=== PATIENT | female | born 1955 | race Caucasian/White ===

== ENCOUNTER 2023-04-24 10:44 | Emergency (ER) | payer OTHER ==
[~2023-04-24] VITALS: Ht 172.7 cm; Wt 67.9 kg
[2023-04-24 10:55] VITALS: BP 153/74; PULSE 79; RESP 16; TEMP 98; O2SAT 96
== END 2023-04-24 13:20 | disposition home or self-care (01) ==
LOC: ER 10:44
DX: S92.811A Other fracture of right foot, initial encounter for closed fracture (principal); W18.39XA Other fall on same level, initial encounter; Y93.89 Activity, other specified; Y92.89 Other specified places as the place of occurrence of the external cause; Y99.8 Other external cause status
CPT/HCPCS: 73630

== ENCOUNTER 2024-10-31 08:27 | Inpatient (IN) | payer OTHER ==
[~2024-10-31] VITALS: Ht 172.7 cm; Wt 77.4 kg
[~2024-10-31 08:27] MED LIST: AML5T GT; ASPI81CH59 PO; BIOT1SUB SL; CALC-605 PO; COLL1TAB PO; GLUCPOW42 PO; HYDR1TAB97 PO; IBUP-1455 PO; LISI40TA16 PO; LUTE1CAP10 PO; MAGN400T40 OR; MULT-1054 PO; POTA80TA OR; SIMV20TA20 PO; TURM500C3 OR; VITA200T2 PO
[2024-10-31] MEDS: TRANEXAMIC ACID 20 ML ONE (08:41)
[2024-10-31] MEDS ORDERED: KETOROLAC TROMETH 30 MG/ML 1ML VIAL ONE ×2 (08:43→08:51)
[2024-10-31] MEDS ORDERED: MORPHINE SULF PF 5 MG/10 ML VIAL ONE (08:51)
[2024-10-31] MEDS: CEFEPIME 1GM/ 50ML 50 ML IV ONE ×2 (08:52→09:12)
[2024-10-31] MEDS: CELECOXIB 100 MG CAP ONE (09:07)
[2024-10-31] MEDS: PREGABALIN CAPSULE 75 MG CAP ONE (09:07)
[2024-10-31] MEDS ORDERED: ceFAZolin 2 GM/D5W50ml 50 ML IV ONE (09:10)
[2024-10-31] MEDS: ACETAMINOPHEN 500 MG TAB or CAP PO ONE (09:10)
[2024-10-31] MEDS: ACETAMINOPHEN IV 100 ML IV ONE (09:20)
[2024-10-31] MEDS ORDERED: fentaNYL CITRATE 100 MCG/2 ML VL ONE (09:52)
[2024-10-31] MEDS ORDERED: MIDAZOLAM HCL 2MG/2ML 2ml VIAL (1mg/ml) ONE (09:53)
[2024-10-31] MEDS ORDERED: PROPOFOL 10 MG/ML 20 ML IV ONE (09:54)
[2024-10-31] MEDS ORDERED: ePHEDrine SULFATE 50 MG/ML AMP ONE (10:25)
[2024-10-31] MEDS: BUPIVACAINE 0.25% INJ 50ML VIAL ONE (10:48)
[2024-10-31] MEDS: VANCOMYCIN HCL 1000 MG VL ONE (10:49)
[2024-10-31] MEDS: ROPIVACAINE 0.5% (5MG/ML) 20ML AMPULE IJ ONE (11:04)
[2024-10-31] MEDS ORDERED: MORPHINE SULFATE INJ 2 MG/ml SYRG IV PRN (11:15)
[2024-10-31] MEDS ORDERED: ONDANSETRON HCL 4 MG/2 ML VIAL IV PRN (11:15)
[2024-10-31] MEDS ORDERED: NITROGLYCERIN 0.4 MG SL TAB SL PRN (11:15)
[2024-10-31 11:39] VITALS: PULSE 65; RESP 15; O2SAT 95
[2024-10-31] MEDS ORDERED: ONDANSETRON HCL 4 MG/2 ML VIAL IV ONE (12:00)
[2024-10-31] MEDS ORDERED: HYDROmorphone HCL 2 MG/ML VL/or syr IV PRN (12:00)
[2024-10-31] MEDS: SODIUM CHLOR 0.9% PF (SALINE LOCK) 10ML VIAL/SYR IV SCH (14:00)
--- NOTE | 2024-10-31 14:45 | DVH ---
EXAM: XY PELVIS AP CLINICAL INDICATION: sp Right JULIAN TECHNIQUE: XY PELVIS AP Comparison: None FINDINGS/IMPRESSION: Right total hip arthroplasty. Moderate left hip osteoarthritis.
[2024-10-31] MEDS: OXYCODONE W/ ACETAMINOPHEN 5/325MG TABLET PO PRN (14:48)
[2024-10-31] MEDS: ceFAZolin 1GM/50ML 50 ML IV SCH ×2 (15:21→21:50)
[2024-10-31 15:34] VITALS: BP 109/60; PULSE 55; RESP 18; TEMP 97.5; O2SAT 97
--- NOTE | 2024-10-31 20:00 | DVHOP2 ---
Operative Report - 2 Report Details Date: 10/31/24 Preop Diagnosis: Right hip osteoarthritis Postop Diagnosis: as above Surgeon: Checo Hale MD Sharepoint Net Developer: Frank COVINGTON Anesthesiologist: Lennie IBRAHIM Anesthesia: Regional Implant: Lilly and nephew size 52 R3 cup Dual mobility 28/40+4 catalyst stem size 6 HO Consent: The patient was informed of the risks and benefits of the procedure. These include but are not limited to complications of anesthesia, postoperative infection, incomplete relief of symptoms, recurrence of symptoms, damage to b lood vessels, nerves and tendons, deep venous thrombosis, pulmonary embolism and possible need for repeat surgery in the future. Estimated Blood Loss: 300 cc Name of Procedure Performed Right total hip arthroplasty using computer navigation Procedure Details Procedure Details: INDICATION: This patient has failed non-operative treatments for hip arthritis and is now indicated for a total hip replacement. Preoperatively in the waiting area as well as in the office, I had a long discussion with the patient regarding the plan, the expected outcome, the risks, benefits, and alternatives of surgery. The risks include, but are not limited to, infection (which may require future surgery and removal of implants) , bleeding (which may require a transfusion), damage to nerves, arteries, veins, tendons, muscles and other adjacent structures. Also discussed the possibilities of dislocation, leg-length discrepancy, intraoperative fractures, implant loosening, heterotopic bone formation, and revision for variety of reasons, and medical complications etc. This was discussed at length and consent has been obtained. DESCRIPTION OF PROCEDURE: In the preoperative holding area, the consent was reviewed and the appropriate extremity was verified by the patient and marked with my initials. The patient was then transferred to the operating theatre. Appropriate anesthetia was induced. All bony prominences were well padded. A time out was performed verifying the side and site of surgery according to standard protocol. Preoperative antibiotics were given. Tranexamic acid was given. The patient was then placed in the lateral decubitus position and fixed with rigid pelvic fixation. All bony prominences were well padded and an axillary roll was placed. The affected hip area was then prepped and draped in the usual sterile fashion. We made a standard posterolateral incision sharply through the skin and carried our dissection down through subcutaneous tissue to the underlying fascia achieving hemostasis where necessary. We incised the fascia in line with our incision. We identified and protected the sciatic nerve. We took down the external rotators and hip capsule from their insertion into the greater t rochanter, tagged them and retracted them posteriorly for further protection of the sciatic nerve. A check point was placed into the greater trochanter and the hip center and leg length length were registered. We then dislocated the femoral head and per formed an osteotomy of the femoral neck in accordance with our pre-operative plan. The labrum was excised with a long-handle knife, and we exposed the acetabular rim and cotyloid fossa. We then reamed up to our final size in accordance with the preoperative plan. We copiously irrigated and then impacted the final cup into position. We confirmed the position with the robotic navigation guidance. We irrigated the cup and impacted the liner, checking to make sure it was well seated. Attention was then turned to the femur. We used a box osteotome followed by a canal finder to gain entry to the canal. Intramedullary contents were suctioned and care was taken to ensure they did not touch the tissues. We sequentially reamed until good cortical contact, then broached up to out final size. We trialed with the appropriate femoral neck and head and reduced the hip. The hip was taken through a full range of motion. The hip soft tissues were examined in extension and external rotation, the anterior capsule and IT band were palpated, and combined anteversion was determined to be 40 degrees. The hip was stable at maximum flexion, at 90 degrees of flexion and 45 degrees of internal rotation and the position of sleep. Leg lengths were restored as shown using the computer navigation, and the trial LTC matched preoperative and intraoperative templating. The hip was then dislocated and trial components removed. We copiously irrigated the wound and impacted the final femoral stem into position. The femoral head was impacted onto a clean and dry trunion and confirmed to be seated. The hip was reduced ensuring to tissues in the acetabular cup. We again brought it through a full functional range of motion and there was no evidence for dislocation, instability, or impingement. The checkpoint was removed. A dilute betadine solution (17.5mL in 500mL saline) was used to wash the joint and left to sit for 3 minutes. This was then irrigated out with copious amounts of pulse lavage. We sprinkled 1g vancomycin powder below the fascia and 1g above the fascia. We copiously irrigated the wound and soft tissues. The short external rotators and capsule were repaired to the greater trochanter through drill holes, and the quadratus was repaired. We palpated the sciatic nerve in continuity without tension. The fascia was closed with vicryl and a barbed suture. We closed over the fascia with vicryl suture and re-approximated the skin with monocryl. A sterile dressing was placed. We returned the patient to the supine position. We verified all lower extremity compartments were soft and compressible and that we had intact distal pulses and checked our leg length yarsani. We took an AP Pelvis in the operating room, which we reviewed prior to transfer. The patient was then transferred to the recovery room in stable condition. Condition Good Disposition Still a Patient CHECO HALE MD October 31, 2024 20:00
[2024-10-31] MEDS: HYDROmorphone HCL 2 MG/ML VL/or syr IV PRN (20:05)
[2024-10-31 20:10] VITALS: O2SAT 0
[2024-10-31 21:00] VITALS: BP 139/61; PULSE 63; RESP 17; TEMP 97.8; O2SAT 94
[2024-10-31] MEDS: ATORVASTATIN 20 MG TAB PO SCH (21:47)
[2024-10-31] MEDS: oxyCODONE ER 10 MG TAB PO SCH (21:51)
[2024-10-31] MEDS: DOCUSATE SOD 100 MG CAP PO SCH (21:54)
[2024-11-01] VITALS (8 sets, daily range): BP systolic 103–122; BP diastolic 48–59; PULSE 64–73; RESP 17–20; TEMP 98–99; O2SAT 0–99
[2024-11-01] MEDS: LACTATED RINGER'S 1,000 ML IV SCH (00:52)
[2024-11-01 06:12] LABS: Hematocrit 29.1 % (36.0-46.0); Hemoglobin 10.1 g/dL (12.2-16.2)
[2024-11-01 06:37] LABS: Alanine Aminotransferase 16 U/L (7-40); Albumin 3.9 g/dL (3.2-4.8); Alkaline Phosphatase 65 U/L (46-116); Anion Gap 7 (5-15); Aspartate Aminotransferase 22 U/L (13-40); BUN/Creatinine Ratio 18.9 (10.0-20.0); Bilirubin, Total 0.9 mg/dL (0.2-1.0); Blood Urea Nitrogen 17 mg/dL (9-23); Calcium 9.3 mg/dL (8.7-10.4); Carbon Dioxide 27 mmol/L (20-31); Chloride 101 mmol/L (98-107); Glucose 98 mg/dL (74-106); Potassium 4.2 mmol/L (3.5-5.1)
[2024-11-01 06:51] LABS: Sodium 135 mmol/L (136-145); Total Protein 5.7 g/dL (5.7-8.2)
[2024-11-01] MEDS: CEFEPIME 1GM/ 50ML 50 ML IV SCH (09:52)
[2024-11-01] MEDS: amLODIPine BESYLATE 5 MG TAB GT SCH (09:54)
[2024-11-01] MEDS: MULTIPLE VITAMINS W/ MINERALS TAB PO SCH (09:54)
[2024-11-01] MEDS: ASPirin-EC 81 mg tab PO SCH (09:54)
[2024-11-01] MEDS: LISINOPRIL 20 MG TAB PO SCH (09:57)
[2024-11-01] MEDS: [UNRECOGNIZED DRUG - OTHER] PO SCH (09:58)
[2024-11-01] MEDS ORDERED: PATIENTS OWN MEDICATION (Aspirin (Aspirin Low Dose) 81 MG) PO SCH (10:00)
[2024-11-01] MEDS ORDERED: PATIENTS OWN MEDICATION (Simvastatin 20 MG) PO SCH (10:00)
[2024-11-01] MEDS ORDERED: PATIENTS OWN MEDICATION (Lisinopril 40 MG) PO SCH (10:00)
--- NOTE | 2024-11-01 16:13 | DVHPN2 ---
Progress Note Date Seen: November 01, 2024 Medical Necessity Reason Pt with a Central, PICC or Fol: No Subjective Patient reports: No new complaints Objective vital signs Vital Sign Date Time Temp Pulse Resp B/P (MAP) Pulse Ox O2 Delivery O2 Flow Rate FiO2 11/01/24 13:44 73 20 115/57 11/01/24 12:39 99.0 95 99.0 10/31/24 20:10 Room Air* 0 21 Total Intake and Output 10/31/24 10/31/24 11/01/24 14:59 22:59 06:59 Intake Total 50 ml 1290 ml Output Total 200 ml Balance 50 ml 1090 ml medications Current Medications Medications Dose Ordered Sig/Shaila Route Start Time Stop Time Status Last Admin Dose Admin Amlodipine Besylate 5 mg DAILY GT 11/01/24 10:00 11/01/24 09:54 5 MG Multivitamins/ Minerals 1 tab DAILY PO 11/01/24 10:00 11/01/24 09:54 1 TAB Patient Own Medication 81 mg DAILY PO 11/01/24 10:00 Cancel Patient Own Medication 5,000 mcg DAILY SL 11/01/24 10:00 Patient Own Medication 40 mg DAILY PO 11/01/24 10:00 UNV Patient Own Medication 1 cap DAILY PO 11/01/24 10:00 Patient Own Medication 20 mg DAILY PO 11/01/24 10:00 UNV Lactated Ringer's 1,000 ml @ 100 mls/hr Q10H IV 10/31/24 11:15 11/01/24 00:52 100 MLS/HR Sodium Chloride 10 ml Q8HR IV 10/31/24 14:00 11/01/24 14:00 10 ML Oxycodone/ Acetaminophen 1 tab Q4HP PRN PO 10/31/24 11:15 11/01/24 01:57 1 TAB Hydromorphone HCl 1 mg Q2HP PRN IV 10/31/24 11:15 11/01/24 12:44 1 MG Ondansetron HCl 4 mg Q6HP PRN IV 10/31/24 11:15 Docusate Sodium 100 mg Q12HR PO 10/31/24 22:00 11/01/24 09:54 100 MG Nitroglycerin 0.4 mg Q5MINP PRN SL 10/31/24 11:15 Morphine Sulfate 2 mg Q30M PRN IV 10/31/24 11:15 Cefepime HCl 50 ml @ 12.5 mls/hr DAILY IV 11/01/24 10:00 11/01/24 09:52 12.5 MLS/HR Oxycodone HCl 10 mg Q12HR PO 10/31/24 22:00 11/01/24 09:56 10 MG Aspirin 81 mg DAILY PO 11/01/24 10:00 11/01/24 09:54 81 MG Lisinopril 40 mg DAILY PO 11/01/24 10:00 11/01/24 09:57 40 MG Atorvastatin Calcium 10 mg HS PO 10/31/24 22:00 10/31/24 21:47 10 MG Examination: GENERAL:Normal, MSK:Abnormal laboratory and microbiology Laboratory Tests 11/01/24 05:17 Test 11/01/24 05:17 Range/Units Serum Glucose 98 74-106 mg/dL Problem List/Assessment/Plan Problem List/Assessment/Plan 69 year old female who is s/p right JULIAN POD 1 1. Pain control 2. WBAT 3. Posterior hip precautions 4. physical therapy 5. d/c planning for SNF Plan discussed with: Patient Date of Service: November 01, 2024 Billing Provider: ASHU HALE MD Common Visit Codes: NOT BILLABLE TOMAS KEYS NP November 01, 2024 16:13
[2024-11-02 05:00] VITALS: BP 114/56; PULSE 71; RESP 16; TEMP 98.7; O2SAT 93
[2024-11-02 06:29] LABS: Hematocrit 28.1 % (36.0-46.0); Hemoglobin 9.7 g/dL (12.2-16.2)
--- NOTE | 2024-11-02 07:50 | DVHDS2 ---
Discharge Summary Date of Admission October 31, 2024 at 11:11 Date of Discharge: November 02, 2024 Wounds: If the wound is draining please change the gauze pad on the wound until it stops. If drainage persists past 10 days please notify our office. If there is a sticky gel dressing over your wound, you may leave this in place for as long as it is clean and dry. If it becomes loose or causes skin irritation, it is OK to remove it and place clean gauze over your wound. 1. You might notice some bruising around the surgical site, this is normal. 2. Check your temperature on a daily basis. Please note that a low-grade temp below 101 is not uncommon after surgery especially during the first 3 days. Notify the office if your temperature spikes above 101.5 after the 3rd post- operative date. 3. Many patients experience significant swelling in the thigh, this may extend below the knee and sometimes to the ankle. Swelling increases during the first week and subsides during the following week. 4. Provided you have been on a blood thinner since surgery and have been up and about at least three times per day, the risk of a blood clot is low and this swelling is an expected part of recovery. It will largely or completely resolve by your first post-operative visit. 5. Ulysses, if present, will be removed at 2 weeks during initial post-op visit. Labs/Diagnostic Data: Laboratory Results Test 11/02/24 05:39 11/01/24 05:17 Hemoglobin 9.7 g/dL (12.2-16.2) Hematocrit 28.1 % (36.0-46.0) Sodium Level 135 mmol/L (136-145) Potassium Level 4.2 mmol/L (3.5-5.1) Chloride Level 101 mmol/L (98-107) Carbon Dioxide Level 27 mmol/L (20-31) Anion Gap 7 (5-15) Blood Urea Nitrogen 17 mg/dL (9-23) Creatinine 0.90 mg/dL (0.550-1.02) Glomerular Filtration Rate Calc 69 mL/min (>90) BUN/Creatinine Ratio 18.9 (10.0-20.0) Serum Glucose 98 mg/dL (74-106) Calcium Level 9.3 mg/dL (8.7-10.4) Total Bilirubin 0.9 mg/dL (0.2-1.0) Aspartate Amino Transferase (AST) 22 U/L (13-40) Alanine Aminotransferase (ALT) 16 U/L (7-40) Alkaline Phosphatase 65 U/L (46-116) Total Protein 5.7 g/dL (5.7-8.2) Albumin 3.9 g/dL (3.2-4.8) Other Laboratory Tests 11/02/24 05:39 11/01/24 05:17 Brief Hx & Hospital Course: s/p right JULIAN Condition at Discharge: Good Final Diagnosis/Problems List as above [facility]charge Disposition: [facility] Facility Discharge Instruct/Medications Diet: Regular Diet comment: may advance diet as tolerated Activity: See Comment Activity comment: 1.You can bear as much weight as you tolerate on your hip unless specifically instructed otherwise. You may use the walking aid which you were discharged with and switch to a cane whenever you feel comfortable doing so. You should use an assistive device until you can walk comfortably without it. Keep in mind that every patient moves at their own speed of recovery so take your time. 2.A physical therapist will visit you at home. 3. Although guarantees against a dislocation do not exist, the hip was noted to be sufficiently stable in surgery. Below are motions that you should dischargenot do for 4-6 weeks, depending on the surgical approach used. If there are questions, please call the office. a.Bend forward past 90 degrees b.Sit on a regular low chair, couch, car seat etc... c.Cross your legs d.Use a regular low toilet seat. e.Sleep on your stomach or on either side. 3.High impact activity such as jumping, aerobics, tennis, and skiing are not permitted during the first 3 months after surgery. These activities can contribute to accelerated wear and should be done with caution after this time. Discuss this with your surgeon if you have questions. 4.Although a bath or whirlpool is NOT permitted during the first 2-3 weeks, you may shower as soon as you get home from the hospital provided you are able to keep your bandage clean and dry and there is no wound drainage. If you are unable to place a secured covering over your bandage bed bath/sponge bath may likely be the more appropriate option. 5.Swimming is not permitted until the wound is healed, which typically occurs approximately 3-4 weeks after surgery. Follow Up/Referral: 1.Driving is not permitted within the first 2 weeks. 2.Your first postoperative visit will take place 2weeks after discharge. Please call the office to arrange this appointment. 3.Antibiotic preventative treatment is required before dental or other invasive procedures. Please ask your surgeon about this at your first postoperative visit. Your hip replacement contains metal which may activate metal detectors. You may wish to carry a letter from your surgeon to communicate this to security personnel. If you experience chest pain, shortness of breath or severe painful calf swelling, go to the nearest emergency room to be evaluated. Please call our office once your situation is stabilized. Medications: 1.You will be discharged with pain medication, Aspirin as a blood thinner and sometimes an anti-inflammatory medication such as Celebrex or Mobic might be prescribed. Please follow the instructions regarding these medicines as provided by your nurse at the hospital. 2.Narcotic pain medication has side effects, including constipation. Please ensure you continue to take stool softeners (Colace, Senna) while taking your pain medication to help protect against constipation. Getting up and moving around at least a few times per day helps with this also. 3.Lovenox 40 Sq x 12 days followed by one regular strength 325 mg coated aspirin daily for 4 weeks after surgery. Then, take one baby aspirin, 81 mg daily for 6 weeks more. A major, yet preventable, complication of Orthopaedic Surgery is a blood clot (DVT). It is important not to miss any doses of this important medication. 4.You should restart all of your prescription medications once discharged unless specifically instructed otherwise. 5.Herbal supplements may be restarted 2 weeks after surgery. Discharge Statement: "Patient was advised to return to the ER or call 911 if any headaches, dizziness, shortness of breath, chest pain, abdominal pain, bleeding, fevers, or worsening of medical condition. Patient was counseled about treatment plan, medications, possible side effects, patientverbalized understanding. All questions were answered to the best of my ability. This discharge took greater then 30 minutes in planning, reviewing documentation, counseling the patient, and discussing with other team members." ASSESSMENT ASSESSMENT Assessment as above TOMAS KEYS NP November 02, 2024 07:50
[2024-11-02 08:30] VITALS: PULSE 67; RESP 18; O2SAT 98
[2024-11-02 09:00] VITALS: BP 111/46; PULSE 67; RESP 18; TEMP 98.8; O2SAT 98
[2024-11-02 13:00] VITALS: BP 112/55; PULSE 67; RESP 18; TEMP 98.3; O2SAT 97
== END 2024-11-02 16:13 | disposition home or self-care (01) | DRG 470 ==
LOC: SUR 08:27 → OVERFLOW 11:11 → WEST WING 15:34
PROVIDERS: ADMIT Orthopaedic Surgery Adult Reconstructive Orthopaedic Surgery; ATTEND Orthopaedic Surgery Adult Reconstructive Orthopaedic Surgery
PROC: 0SR90JZ Replacement of Right Hip Joint with Synthetic Substitute, Open Approach (ICD-10-PCS; principal; 2024-10-31 10:04)
DX: M16.11 Unilateral primary osteoarthritis, right hip (principal)
CPT/HCPCS: 36415; 72170; 80053; 85014; 85018; 86850; 86900; 86901; 97163; G0378; J0131; J1885; J2250; J2704; J3490

== ENCOUNTER 2025-03-27 06:11 | Inpatient (IN) | payer OTHER ==
[~2025-03-27] VITALS: Ht 172.7 cm; Wt 81.2 kg
[2025-03-27] MEDS: ceFAZolin 2 GM/D5W50ml 50 ML IV ONE (06:30)
[2025-03-27] MEDS: ROPIVACAINE 0.5% (5MG/ML) 20ML AMPULE IJ ONE (07:00)
[2025-03-27] MEDS ORDERED: PROPOFOL 10 MG/ML 20 ML IV ONE (07:03)
[2025-03-27] MEDS ORDERED: BUPIVACAINE/DEXTROSE MPF 0.75% 2 ML AMP IT ONE (07:04)
[2025-03-27] MEDS: CELECOXIB 100 MG CAP PO ONE (07:05)
[2025-03-27] MEDS: PREGABALIN CAPSULE 75 MG CAP PO ONE (07:05)
[2025-03-27] MEDS: ACETAMINOPHEN IV 1000 MG/100ML (10MG/ML) IV ONE (07:05)
[2025-03-27] MEDS: VANCOMYCIN HCL 1000 MG VL ONE (07:07)
[2025-03-27] MEDS: TRANEXAMIC ACID 20 ML ONE (07:07)
[2025-03-27] MEDS: BUPIVACAINE 0.25% INJ 50ML VIAL ONE (07:09)
[2025-03-27] MEDS ORDERED: PHENYLEPHRINE HCL 10 MG/ML VL ONE (07:10)
[2025-03-27] MEDS ORDERED: fentaNYL CITRATE 100 MCG/2 ML VL ONE (07:11)
[2025-03-27] MEDS ORDERED: MIDAZOLAM HCL 2MG/2ML 2ml VIAL (1mg/ml) ONE (07:11)
[2025-03-27] MEDS ORDERED: ONDANSETRON HCL 4 MG/2 ML VIAL IV PRN ×2 (07:15→08:45)
[2025-03-27] MEDS ORDERED: MORPHINE SULFATE INJ 2 MG/ml SYRG IV PRN (07:15)
[2025-03-27] MEDS ORDERED: NITROGLYCERIN 0.4 MG SL TAB SL PRN (07:15)
[2025-03-27] MEDS ORDERED: ceFAZolin 1GM/50ML 50 ML IV SCH (07:15)
[2025-03-27] MEDS: KETOROLAC TROMETH 30 MG/ML 1ML VIAL ONE (07:44)
[2025-03-27] MEDS: MORPHINE SULF PF 5 MG/10 ML VIAL ONE (07:44)
[2025-03-27] MEDS: CEFEPIME 1GM/50ML 50 ML IV ONE (07:49)
[2025-03-27 08:33] VITALS: PULSE 80; RESP 15; O2SAT 95
[2025-03-27] MEDS: LACTATED RINGER'S 1,000 ML IV SCH (08:33)
--- NOTE | 2025-03-27 09:58 | DVH ---
CLINICAL INDICATION: sp Left JULIAN TECHNIQUE: 1 radiographic views of the pelvis were obtained. Comparison: XY PELVIS AP on DOS: 10/31/24 FINDINGS/IMPRESSION: Postsurgical changes from left hip arthroplasty. Status post right hip arthroplasty.
[2025-03-27] MEDS: DOCUSATE SOD 100 MG CAP PO SCH (10:00)
[2025-03-27] MEDS ORDERED: CEFEPIME 1GM/50ML 50 ML IV SCH (10:00)
[2025-03-27] MEDS: POTASSIUM GLUCONATE 595 MG PO SCH (10:00)
[2025-03-27] MEDS: MULTIPLE VITAMINS W/ MINERALS TAB PO SCH (10:00)
[2025-03-27] MEDS ORDERED: HYDROMORPHONE HCL 1 MG/ML INJ IV PRN (10:30)
[2025-03-27] MEDS: LISINOPRIL 20 MG TAB PO SCH (10:38)
[2025-03-27] MEDS: ACETAMINOPHEN IV 1000 MG/100ML (10MG/ML) IV PRN (13:35)
[2025-03-27] MEDS: ACETAMINOPHEN IV 100 ML IV ONE (13:36)
[2025-03-27] MEDS: ceFAZolin 1GM/50ML 50 ML IV SCH (13:48)
[2025-03-27] MEDS: SODIUM CHLOR 0.9% PF (SALINE LOCK) 10ML VIAL/SYR IV SCH (14:00)
[2025-03-27 16:44] VITALS: BP 104/67; PULSE 74; RESP 19; TEMP 98.4; O2SAT 95
[2025-03-27 17:00] VITALS: BP 108/58; PULSE 66; RESP 16; TEMP 97.9; O2SAT 94
--- NOTE | 2025-03-27 17:14 | DVHOP2 ---
Operative Report - 2 Report Details Date: 03/27/25 Preop Diagnosis: Left hip osteoarthritis Postop Diagnosis: Left hip osteoarthritis Surgeon: Checo Hale MD Pickle Cutter: Frank COVINGTON Anesthesiologist: Lennie IBRAHIM Anesthesia: Regional Implant: Lilly and Nephew Size 52 r3 cup dual mobility 28/40 +4 Catalyst HO size 6 Consent: The patient was informed of the risks and benefits of the procedure. These include but are not limited to complications of anesthesia, postoperative infection, incomplete relief of symptoms, recurrence of symptoms, damage to blood vessels, nerves and tendons, deep venous thrombosis, pulmonary embolism and possible need for repeat surgery in the future. Estimated Blood Loss: 300 cc Name of Procedure Performed 1. Left total hip arthroplasty using computer navigation Procedure Details Procedure Details: FINDINGS: Extensive degenerative disease with grade IV changes INDICATION: This patient has failed non-operative treatments for hip arthritis and is now indicated for a total hip replacement. Preoperatively in the waiting area as well as in the office, I had a long discussion with the patient regarding the plan, the expected outcome, the risks, benefits, and alternatives of surgery. The risks include, but are not limited to, infection (which may require future surgery and removal of implants) , bleeding (which may require a transfusion), damage to nerves, arteries, veins, tendons, muscles and other adjacent structures. Also discussed the possibilities of dislocation, leg-length discrepancy, intraoperative fractures, implant loosening, heterotopic bone formation, and revision for variety of reasons, and medical complications etc. This was discussed at length and consent has been obtained. DESCRIPTION OF PROCEDURE: In the preoperative holding area, the consent was reviewed and the appropriate extremity was verified by the patient and marked with my initials. The patient was then transferred to the operating theatre. Appropriate anesthetia was induced. All bony prominences were well padded. A time out was performed verifying the side and site of surgery according to standard protocol. Preoperative antibiotics were given. Tranexamic acid was given. The patient was then placed in the lateral decubitus position and fixed with rigid pelvic fixation. All bony prominences were well padded and an axillary roll was placed. The affected hip area was then prepped and draped in the usual sterile fashion. Using an 11-blade, three stab incisions were made over the iliac crest. Two threaded guide pins were inserted into the crest confirming to be in bone. The pelvic array was attached to the pins and tightened. We made a standard posterolateral incision sharply through the skin and carried our dissection down through subcutaneous tissue to the underlying fascia achieving hemostasis where necessary. We incised the fascia in line with our incision. We identified and protected the sciatic nerve. We took down the external rotators and hip capsule from their insertion into the greater trochanter, tagged them and retracted them posteriorly for further protection of the sciatic nerve. A check point was placed into the greater trochanter and the hip center and leg length length were registered. We then dislocated the femoral head and performed an osteotomy of the femoral neck in accordance with our pre-operative plan. The labrum was excised with a long-handle knife, and we exposed the acetabular rim and cotyloid fossa. We then reamed up to our final size in accordance with the preoperative plan. We copiously irrigated and then impacted the final cup into position. We confirmed the position with the robotic navigation guidance. We irrigated the cup and impacted the liner, checking to make sure it was well seated. Attention was then turned to the femur. We used a box osteotome followed by a canal finder to gain entry to the canal. Intramedullary contents were suctioned and care was taken to ensure they did not touch the tissues. We sequentially reamed until good cortical contact, then broached up to out final size. We trialed with the appropriate femoral neck and head and reduced the hip. The hip was taken through a full range of motion. The hip soft tissues were examined in extension and external rotation, the anterior capsule and IT band were palpated, and combined anteversion was determined to be 40 degrees. The hip was stable at maximum flexion, at 90 degrees of flexion and 45 degrees of internal rotation and the position of sleep. Leg lengths were restored as shown using the computer navigation, and the trial LTC matched preoperative and intraoperative templating. The hip was then dislocated and trial components removed. We copiously irrigated the wound and impacted the final femoral stem into position. The femoral head was impacted onto a clean and dry trunion and confirmed to be seated. The hip was reduced ensuring to tissues in the acetabular cup. We again brought it through a full functional range of motion and there was no evidence for dislocation, instability, or impingement. The checkpoint was removed. A dilute betadine solution (17.5mL in 500mL saline) was used to wash the joint and left to sit for 3 minutes. This was then irrigated out with copious amounts of pulse lavage. We sprinkled 1g vancomycin powder below the fascia and 1g above the fascia. We copiously irrigated the wound and soft tissues. The short ex ternal rotators and capsule were repaired to the greater trochanter through drill holes, and the quadratus was repaired. We palpated the sciatic nerve in continuity without tension. The fascia was closed with vicryl and a barbed suture. We closed over the fascia with vicryl suture and re-approximated the skin with scott. A sterile dressing was placed. We returned the patient to the supine position. We verified all lower extremity compartments were soft and compressible and that we had intact distal pulses and checked our leg length mu-ism. The patient was then transferred to the recovery room in stable condition. Condition Good Disposition Still a Patient CHECO HALE MD Mar 27, 2025 17:14
[2025-03-27 20:00] VITALS: O2SAT 97
[2025-03-27] MEDS: HYDROMORPHONE HCL 1 MG/ML INJ IV PRN (20:04)
[2025-03-27 21:00] VITALS: BP 119/68; PULSE 69; RESP 17; TEMP 97.9; O2SAT 94
[2025-03-27] MEDS: ATORVASTATIN 20 MG TAB PO SCH (21:49)
[2025-03-27] MEDS: OXYCODONE W/ ACETAMINOPHEN 5/325MG TABLET PO PRN (22:48)
[2025-03-28 00:52] VITALS: BP 131/71; PULSE 75; RESP 18; TEMP 98; O2SAT 92
[2025-03-28 04:47] VITALS: BP 111/65; PULSE 77; RESP 18; TEMP 98; O2SAT 93
[2025-03-28 05:53] LABS: Hematocrit 28.3 % (36.0-46.0); Hemoglobin 10.0 g/dL (12.2-16.2)
[2025-03-28 06:13] LABS: Alanine Aminotransferase 15 U/L (7-40); Alkaline Phosphatase 69 U/L (46-116); Anion Gap 9 (5-15); Carbon Dioxide 26 mmol/L (20-31); Chloride 104 mmol/L (98-107); Potassium 4.4 mmol/L (3.5-5.1); Sodium 139 mmol/L (136-145)
[2025-03-28 06:14] LABS: Albumin 3.7 g/dL (3.2-4.8); BUN/Creatinine Ratio 18.8 (10.0-20.0); Blood Urea Nitrogen 19 mg/dL (9-23); Total Protein 5.7 g/dL (5.7-8.2)
[2025-03-28 06:16] LABS: Bilirubin, Total 0.7 mg/dL (0.2-1.0)
[2025-03-28 06:20] LABS: Calcium 8.4 mg/dL (8.7-10.4); Glucose 125 mg/dL (74-106)
--- NOTE | 2025-03-28 08:27 | DVHDS2 ---
Discharge Summary Date of Admission Mar 27, 2025 at 07:06 Date of Discharge: Mar 28, 2025 Wounds: If the wound is draining please change the gauze pad on the wound until it stops. If drainage persists past 10 days please notify our office. If there is a sticky gel dressing over your wound, you may leave this in place for as long as it is clean and dry. If it becomes loose or causes skin irritation, it is OK to remove it and place clean gauze over your wound. 1. You might notice some bruising around the surgical site, this is normal. 2. Check your temperature on a daily basis. Please note that a low-grade temp below 101 is not uncommon after surgery especially during the first 3 days. Notify the office if your temperature spikes above 101.5 after the 3rd post- operative date. 3. Many patients experience significant swelling in the thigh, this may extend below the knee and sometimes to the ankle. Swelling increases during the first week and subsides during the following week. 4. Provided you have been on a blood thinner since surgery and have been up and about at least three times per day, the risk of a blood clot is low and this swelling is an expected part of recovery. It will largely or completely resolve by your first post-operative visit. 5. Margarita, if present, will be removed at 2 weeks during initial post-op visit. Labs/Diagnostic Data: Laboratory Results Test 03/28/25 05:30 Hemoglobin 10.0 g/dL (12.2-16.2) Hematocrit 28.3 % (36.0-46.0) Sodium Level 139 mmol/L (136-145) Potassium Level 4.4 mmol/L (3.5-5.1) Chloride Level 104 mmol/L (98-107) Carbon Dioxide Level 26 mmol/L (20-31) Anion Gap 9 (5-15) Blood Urea Nitrogen 19 mg/dL (9-23) Creatinine 1.01 mg/dL (0.550-1.02) Glomerular Filtration Rate Calc 60 mL/min (>90) BUN/Creatinine Ratio 18.8 (10.0-20.0) Serum Glucose 125 mg/dL (74-106) Calcium Level 8.4 mg/dL (8.7-10.4) Total Bilirubin 0.7 mg/dL (0.2-1.0) Aspartate Amino Transferase (AST) 23 U/L (13-40) Alanine Aminotransferase (ALT) 15 U/L (7-40) Alkaline Phosphatase 69 U/L (46-116) Total Protein 5.7 g/dL (5.7-8.2) Albumin 3.7 g/dL (3.2-4.8) Other Laboratory Tests 03/28/25 05:30 Brief Hx & Hospital Course: s/p left JULIAN Condition at Discharge: Good Final Diagnosis/Problems List Left hip osteoarthritis Discharge Disposition: Home with Health Services Discharge Instruct/Medications Diet: Regular Diet comment: may advance diet as tolerated, drink plenty of fluids. Activity: See Comment Activity comment: 1.You can bear as much weight as you tolerate on your hip unless specifically instructed otherwise. You may use the walking aid which you were discharged with and switch to a cane whenever you feel comfortable doing so. You should use an assistive device until you can walk comfortably without it. Keep in mind that every patient moves at their own speed of recovery so take your time. 2.A physical therapist will visit you at home. 3. Although guarantees against a dislocation do not exist, the hip was noted to be sufficiently stable in surgery. Below are motions that you should dischargenot do for 4-6 weeks, depending on the surgical approach used. If there are questions, please call the office. a.Bend forward past 90 degrees b.Sit on a regular low chair, couch, car seat etc... c.Cross your legs d.Use a regular low toilet seat. e.Sleep on your stomach or on either side. 3.High impact activity such as jumping, aerobics, tennis, and skiing are not permitted during the first 3 months after surgery. These activities can contribute to accelerated wear and should be done with caution after this time. Discuss this with your surgeon if you have questions. 4.Although a bath or whirlpool is NOT permitted during the first 2-3 weeks, you may shower as soon as you get home from the hospital provided you are able to keep your bandage clean and dry and there is no wound drainage. If you are unable to place a secured covering over your bandage bed bath/sponge bath may likely be the more appropriate option. 5.Swimming is not permitted until the wound is healed, which typically occurs approximately 3-4 weeks after surgery. Follow Up/Referral: 1.Driving is not permitted within the first 2 weeks. 2.Your first postoperative visit will take place 2weeks after discharge. Please call the office to arrange this appointment. 3.Antibiotic preventative treatment is required before dental or other invasive procedures. Please ask your surgeon about this at your first postoperative visit. Your hip replacement contains metal which may activate metal detectors. You may wish to carry a letter from your surgeon to communicate this to security personnel. If you experience chest pain, shortness of breath or severe painful calf swelling, go to the nearest emergency room to be evaluated. Please call our office once your situation is stabilized. Scheduled Alpha Tocopheryl Acid Succinat (Vitamin E), 180 MG PO DAILY, (Reported) Amlodipine Besylate (Norvasc Tablet), 5 MG GT DAILY, (Reported) Aspirin (Aspirin Low Dose), 81 MG PO DAILY, (Reported) Biotin (Vitamin H) (Biotin), 5,000 MCG SL DAILY, (Reported) Calcium Carbonate-Cholecalcife (Calcium + Vitamin D3 500-5 mg-Mcg), 1 TAB PO DAILY, (Reported) Collagen-Vitamin C (Collagen Skin Renewal Adv 833-30 mg), 1 TAB PO DAILY, (Reported) Curcuma Longa (Turmeric) Extra (Turmeric), 500 MG OR DAILY, (Reported) Kzgnmekggyy-Nywjmitvdzi-Ofgbsd (Glucosamine & Chrondroiti), 1 D3 PO DAILY, (Reported) Hydrocodone-Acetaminophen (Hydrocodone/Acetaminophen 5-325 mg), 1 TAB PO TID, (Reported) Ibuprofen Micronized (Ibuprofen), 800 MG PO BID, (Reported) Lisinopril (Lisinopril), 40 MG PO DAILY, (Reported) Lutein-Zeaxanthin (Ocuvite Blue Light 25-5 mg), 1 CAP PO DAILY, (Reported) Magnesium Oxide (Magnesium Oxide), 250 MG OR DAILY, (Reported) Multiple Vitamins W/ Minerals (Womens Multivitamin), 1 TAB PO DAILY, (Reported) Potassium Gluconate (Potassium Gluconate), 595 MG OR DAILY, (Reported) Simvastatin (Simvastatin), 20 MG PO DAILY, (Reported) Discharge Statement: "Patient was advised to return to the ER or call 911 if any headaches, dizziness, shortness of breath, chest pain, abdominal pain, bleeding, fevers, or worsening of medical condition. Patient was counseled about treatment plan, medications, possible side effects, patientverbalized understanding. All questions were answered to the best of my ability. This discharge took greater then 30 minutes in planning, reviewing documentation, counseling the patient, and discussing with other team members." ASSESSMENT ASSESSMENT Assessment Left hip osteoarthritis TOMAS KEYS NP Mar 28, 2025 08:26
[2025-03-28 09:00] VITALS: BP 135/74; PULSE 74; RESP 17; TEMP 98.6; O2SAT 95
[2025-03-28] MEDS: ASPirin-EC 81 mg tab PO SCH (09:29)
[2025-03-28] MEDS: CEFEPIME 1GM/50ML 50 ML IV SCH (09:30)
[2025-03-28 12:38] VITALS: BP 128/75; PULSE 74; RESP 17; TEMP 99; O2SAT 94
[2025-03-28 14:27] VITALS: PULSE 83; RESP 18
[2025-03-28 14:49] VITALS: BP 135/74; TEMP 37.2
== END 2025-03-28 16:27 | disposition home health service (06) | DRG 470 ==
LOC: SUR 06:11 → OVERFLOW 07:06 → CENTRAL 15:42
PROVIDERS: ADMIT Orthopaedic Surgery Adult Reconstructive Orthopaedic Surgery; ATTEND Orthopaedic Surgery Adult Reconstructive Orthopaedic Surgery
PROC: 8E0Y0CZ Robotic Assisted Procedure of Lower Extremity, Open Approach (ICD-10-PCS; 2025-03-27)
PROC: 0SRB06Z Replacement of Left Hip Joint with Oxidized Zirconium on Polyethylene Synthetic Substitute, Open Approach (ICD-10-PCS; principal; 2025-03-27 07:12)
DX: M16.12 Unilateral primary osteoarthritis, left hip (principal)
CPT/HCPCS: 36415; 72170; 80053; 85014; 85018; 86850; 86900; 86901; 97163; A4565; G0378; J0131; J0169; J1885; J2250; J2704; J3490

== ENCOUNTER 2025-04-02 11:52 | Emergency (ER) | payer OTHER ==
[~2025-04-02] VITALS: Ht 172.7 cm; Wt 73.2 kg
--- NOTE | 2025-04-02 12:25 | ED.PDOC ---
Back pain HPI HPI Comments Left leg swelling Chief Complaint: Lower Extremity Comments Patient had left hip surgery on Thursday. She knows the left leg is swollen today. There is no redness no bruising no pain no fever or chills. Time Seen by MD: 12:03 Primary Care Provider: reginald Reviewed Notes: Nurses Notes, Medications, Allergies Allergies: Coded Allergies: NO KNOWN ALLERGIES (Unverified , 04/24/23) Home Meds Reported Medications Alpha Tocopheryl Acid Succinat (VITAMIN E) 200 Unit Tab, 180 MG PO DAILY, TAB 10/28/24 Curcuma Longa (Turmeric) Extra (TURMERIC) 500 Mg Cap, 500 MG OR DAILY, CAP 10/28/24 Biotin (Vitamin H) (Biotin) 5,000 Mcg Sub, 5000 MCG SL DAILY, INJ 10/28/24 Collagen-Vitamin C (Collagen Skin Renewal Adv 833-30 mg) 1 Tab Tab, 1 TAB PO DAILY, TAB 10/28/24 Calcium Carbonate-Cholecalcife (Calcium + Vitamin D3 500-5 mg-Mcg) 1 Tab Tab, 1 TAB PO DAILY, TAB 10/28/24 Sfchmbxbxgd-Skstbbwbrof-Udwied (Glucosamine & Chrondroiti) Vit D3 Pow, 1 D3 PO DAILY, POW 10/28/24 Potassium Gluconate (POTASSIUM GLUCONATE) 80 Mg Tab, 595 MG OR DAILY, TAB 10/28/24 Magnesium Oxide (MAGNESIUM OXIDE) 400 Mg Tab, 250 MG OR DAILY, TAB 10/28/24 Lutein-Zeaxanthin (Ocuvite Blue Light 25-5 mg) 1 Cap Cap, 1 CAP PO DAILY, CAP 10/28/24 Multiple Vitamins W/ Minerals (Womens Multivitamin) 1 Tab Tab, 1 TAB PO DAILY, TAB 10/28/24 Aspirin (Aspirin Low Dose) 81 Mg Chw, 81 MG PO DAILY, TAB.CHEW 10/28/24 Hydrocodone-Acetaminophen (Hydrocodone/Acetaminophen 5-325 mg) 1 Tab Tab, 1 TAB PO TID, TAB 10/28/24 Ibuprofen Micronized (Ibuprofen) 800 Mg Tab, 800 MG PO BID, TAB 10/28/24 Amlodipine Besylate (NORVASC TABLET) 5 Mg Tb, 5 MG GT DAILY, TAB 10/28/24 Lisinopril (Lisinopril) 40 Mg Tab, 40 MG PO DAILY, TAB 10/28/24 Simvastatin (Simvastatin) 20 Mg Tab, 20 MG PO DAILY, TAB 10/28/24 Information Source: Patient, Friend Mode of Arrival: Ambulatory Timing: Days Duration: Since onset Past Medical History Past Medical History (Other): Osteoarthritis of the hips Surgical History (Other): Bilateral hip surgeries 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 Family History Family History: Reviewed,noncontributory to illness Social History Smoker: Non-Smoker Alcohol: Denies ETOH Use Drugs: Denies Drug Use Lives In: Home Constitutional: denies: chills, diaphoresis, fatigue, fever, malaise, sweats, weakness, others EENTM: denies: blurred vision, double vision, ear bleeding, ear discharge, ear drainage, ear pain, ear ringing, eye pain, eye redness, hearing loss, mouth pain, mouth swelling, nasal discharge, nose bleeding, nose congestion, nose pain, photophobia, tearing, throat pain, throat swelling, voice changes, others Respiratory: denies: cough, hemoptysis, orthopnea, SOB at rest, shortness of breath, SOB with excertion, stridor, wheezing, others Cardiovascular: denies: chest pain, dizzy spells, diaphoresis, Dyspnea on exertion, edema, irregular heart beat, left arm pain, lightheadedness, palpitations, PND, syncope, others Gastrointestinal: denies: abdomen distended, abdominal pain, blood streaked bowels, constipated, diarrhea, dysphagia, difficulty swallowing, hematemesis, melena, nausea, poor appetite, poor fluid intake, rectal bleeding, rectal pain, vomiting, others Genitourinary: denies: abnormal vagina bleeding, burning, dyspareunia, dysuria, flank pain, frequency, hematuria, incontinence, pain, , vagina discharge, urgency, others Neurological: denies: dizziness, fainting, headache, left sided numbness, left sided weakness, numbness, paresthesia, pre-existing deficit, right sided numbness, right sided weakness, seizure, speech problems, tingling, tremors, weakness, others Musculoskeletal: denies: back pain, gout, joint pain, joint swelling, muscle pain, muscle stiffness, neck pain, others Integumetry: reports: others (Left leg swelling); denies: bruises, change in color, change in hair/nails, dryness, laceration, lesions, lumps, rash, wounds Allergic/Immunocompromised: denies: Difficulty Healing, Frequent Infections, Hives, Itching, others Hematologic/Lymphatic: denies: anemia, blood clots, easy bleeding, easy bru ising, swollen glands, others Endocrine: denies: excessive hunger, excessive sweating, excessive thirst, e xcessive urination, flushing, intolerance to cold, intolerance to heat, unexplained weight gain, unexplained weight loss, others Psychiatric: denies: anxiety, bipolar disorder, depression, hopeless, panic disorder, schizophrenia, sleepless, suicidal, others All Other Systems: Reviewed and Negative Physical Exam General Appearance: No Apparent Distress, Normal HEENT: Normal ENT Inspection, Pharynx Normal, TMs Normal Neck: Full Range of Motion, Non-Tender, Normal, Normal Inspection Respiratory: Chest Non-Tender, Lungs Clear, No Accessory Muscle Use, No Respiratory Distress, Normal Breath Sounds Cardiovascular: No Edema, No JVD, No Murmur, No Gallop, Normal Peripheral Pulses, Regular Rate/Rhythm Breast Exam: Deferred Gastrointestinal: No Organomegaly, Non Tender, No Pulsatile Mass, Normal Bowel Sounds, Soft Genitalia: Deferred Pelvic: Deferred Rectal: Deferred Extremities: No calf tenderness, Normal capillary refill, Normal inspection, Normal range of motion, Non-tender, Swelling (Bimalleolar edema of the left leg.), Other (No calf tenderness no calf asymmetry) Musculoskeletal : Apperance: Normal Neurologic: Alert, cloth bleaching range tender II-XII nml as Tested, No Motor Deficits, Normal Affect, Normal Mood, No Sensory Deficits Cerebellar Function: Normal Reflexes: Normal Skin: Dry, Normal Color, Warm Lymphatic: No Adenopathy Was a procedure done? Was a procedure done?: No Back Pain Differential Dx Differential Diagnosis: Other (DVT, pedal edema, congestive heart failure, renal failure, hepatic failure, hypoalbuminemia, hypovolemia, venous ins ufficiency, dependent edema.) X-Ray, Labs, Meds, VS Vital Signs Date Time Temp Pulse Resp B/P (MAP) Pulse Ox O2 Delivery O2 Flow Rate FiO2 04/02/25 11:56 97.8 72 15 155/77 96 97.8 Time of 1ST Reevaluation: 13:54 Reevaluation 1ST: Unchanged Patient Education/Counseling: Diagnosis, Treatment, Prognosis, Need For Follow Up Family Education/Counseling: Diagnosis, Treatment, Prognosis, Need For Follow Up Comments This is a patient who was concerned about the ankles being swollen after hip surgery on the affected site. She has no calf complaints. She was concerned because the discharge paper informed her to return to the ER if she sees any swelling of the extremities. Other than the about malleolar swelling I do not appreciate any other edema. There is no leg asymmetry and there is no calf tenderness. DVT ultrasound of the left leg does not show any DVTs. Patient is stable for discharge with postoperative pedal edema SEPSIS Sepsis Screen Date sepsis recognized/suspect: Apr 02, 2025 Time Sepsis recognized/suspect: 1158 Recent Procedure: No On Antibiotic Therapy: No Respiratory Rate >20: No Heart Rate >90: No Temp<36 C (96.8 F) or >38.3 C: No SBP <90 or MAP <65 mmHG: No New Acute Mental Status Change: No Is the patient on CPAP, BIPAP,: No Physician Orders Lt Lower Dvt (04/02/25 12:16) Vital Signs Date Time Temp Pulse Resp B/P (MAP) Pulse Ox O2 Delivery O2 Flow Rate FiO2 04/02/25 11:56 97.8 72 15 155/77 96 97.8 Departure 1 Departure Time of Disposition: 13:56 Impression: Primary Impression: Pedal edema Disposition: 01 HOME / SELF CARE / HOMELESS Condition: Good Additional Instructions: Please elevate the affected leg to decrease the swelling. Follow up with your primary doctor. Feel free to return to the ER for any concerns. Discharged With: Self, Relative Critical Care Note Critical Care Time?: No Stability Stability form required: No PAPA AYALA MD Apr 02, 2025 12:25
--- NOTE | 2025-04-02 13:45 | DVH ---
CLINICAL HISTORY: r/o dvt left lower extremity pain TECHNIQUE: Color and duplex doppler imaging of the left lower extremity veins was performed. Vessel c ompression if possible was also performed. WID: COMPARISON: None FINDINGS: Left common femoral vein: Normal flow. Difficulty compressing the common femoral vein due to patient 's sensitivity from recent left hip replacement. Left femoral vein: Normal compressibility and flow. Left popliteal vein: Normal compressibility and flow. Proximal calf veins are normally compressible. IMPRESSION: 1. NO SONOGRAPHIC EVIDENCE FOR DEEP VENOUS THROMBOSIS IN THE LEFT LOWER EXTREMITY VEINS.
[2025-04-02 14:00] VITALS: BP 139/68; PULSE 67; RESP 14; TEMP 98; O2SAT 97
== END 2025-04-02 14:20 | disposition home or self-care (01) ==
LOC: ER 11:52
DX: R60.0 Localized edema (principal); Z79.82 Long term (current) use of aspirin; Z79.891 Long term (current) use of opiate analgesic; Z79.899 Other long term (current) drug therapy
CPT/HCPCS: 93971